=== PATIENT | female | born 1995 | race Caucasian/White ===

== ENCOUNTER 2017-04-03 12:34 | Emergency (ER) | payer MEDICAID, OTHER ==
[~2017-04-03] VITALS: Ht 180.3 cm; Wt 90.8 kg
[2017-04-03 12:39] VITALS: BP 110/75; PULSE 95; RESP 16; TEMP 98; O2SAT 100
[2017-04-03] MEDS ORDERED: LIDOCAINE HCL 1% 50 ML VIAL INFIL ONE (13:00)
[2017-04-03] MEDS ORDERED: ALBU6.7H INH (13:06)
[2017-04-03] MEDS ORDERED: CEPH-460 PO (13:33)
[2017-04-03] MEDS ORDERED: BACT800T5 PO (13:33)
--- NOTE | 2017-04-03 13:33 | PD ---
HPI Chief Complaint: Skin Problem Time Seen by Provider: 12:49 Travel History International Travel<30 days: No Contact w/Intl Traveler<30days: No Traveled to known affect area: No History of Present Illness HPI Patient is a 21-year-old female who comes in complaining of a painful lump near her vagina. She says she noticed it yesterday and it became larger today. She said she tried to pop it with a needle, but this did not help. She has not noticed any discharge of fluid from the area. She does shave in that area. She denies any fever or chills. PFSH Past Medical History Asthma: Yes Gastrointestinal Disorders: Yes (gallstones) Tetanus Vaccination: < 5 Years Influenza Vaccination: No ?: Not LMP: LAST MONTH Past Surgical History Surgical History: No Previous Surgery Social History Alcohol Use: No Tobacco Use: Yes (/2 ppd) Substance Use: No Allergies-Medications (Allergen,Severity, Reaction): Coded Allergies: No Known Allergies (Unverified , 04/03/17) Reported Meds & Prescriptions Reported Meds & Active Scripts Active Keflex (Cephalexin) 500 Mg Cap 500 Mg PO Q8H 7 Days Bactrim DS (Sulfamethoxazole-Trimethoprim) 800-160 Mg Tab 1 Tab PO BID Reported Proventil Hfa 6.7 GM Inh (Albuterol Sulfate) 90 Mcg/Act Aer 2 Puff INH Q4-6H PRN Review of Systems General / Constitutional: No: Fever, Chills Cardiovascular: No: Chest Pain or Discomfort Respiratory: No: Shortness of Breath Gastrointestinal: No: Nausea, Vomiting Genitourinary: No: Dysuria Skin: Positive Lesions Neurologic: No: Weakness, Dizziness Physical Exam Narrative GENERAL: Awake and alert, in no acute distress. SKIN: Focused skin assessment warm/dry. 2 cm fluctuant area just outside the lower vagina on the right side. Surrounding erythema. It is clearly outside the vagina, not involved with the labia majora or minora. HEAD: Atraumatic. Normocephalic. EYES: Pupils equal and round. No scleral icterus. NECK: Trachea midline. No JVD. CARDIOVASCULAR: Regular rate and rhythm. No murmur appreciated. RESPIRATORY: No accessory muscle use. Clear to auscultation. Breath sounds equal bilaterally. NEUROLOGICAL: Awake and alert. No obvious cranial nerve deficits. Motor grossly within normal limits. Normal speech. PSYCHIATRIC: Appropriate mood and affect; insight and judgment normal. Data Data Last Documented VS Vital Signs Date Time Temp Pulse Resp B/P Pulse Ox O2 Delivery O2 Flow Rate FiO2 04/03/17 13:51 88 16 108/70 100 Room Air 04/03/17 12:39 98.0 Orders Ed Urine Pregnancytest Poc (04/03/17 12:58) Lidocaine 1% Inj (50 Ml) (Xylocaine 1% I (04/03/17 13:00) MDM Medical Decision Making Medical Screen Exam Complete: Yes Emergency Medical Condition: Yes Medical Record Reviewed: Yes Differential Diagnosis Abscess versus cellulitis versus Bartholin's cyst Narrative Course Patient is a 21-year-old female comes in complaining of a painful swollen lump in her vaginal area. Exam shows an abscess just outside the vagina to the skin where she shaves. Abscess drained, pus expressed. Patient is much more comfortable afterwards. We'll discharge with prescriptions for Bactrim and Keflex. Advised to take ibuprofen as needed for pain. Advised to not shave the area for a few weeks. Advised follow-up with her doctor. Advised to return to the ED as needed for any worsening symptoms. Procedures Procedure Narrative INCISION AND DRAINAGE OF ABSCESS: The area was prepped and was sterilely draped. A subcutaneous wheal of 1 % Xylocaine with a total number 6 mL was used to anesthetize the area properly. A number 11 scalpel was used to make a 1 -cm incision across the area of the abscess. The abscess was drained, complex loculations were broken down, and irrigated with normal saline. Sterile dressing applied. Diagnosis Primary Impression: Abscess Patient Instructions: Abscess (ED), General Instructions Additional Instructions: Keep the area clean and dry. Do not shave for the next 2 weeks at least, and until the infection is completely cleared. Follow up with your doctor. Take all of your antibiotics. Return to the ED as needed for any worsening symptoms. Scripts Cephalexin (Keflex)500 Mg [id number] Mg PO Q8H 7 Days Ref 0 Prov:Rita Mendoza MD 04/03/17 Sulfamethoxazole-Trimethoprim (Bactrim DS)800-160 Mg Tab1 Tab PO BID #14 TAB Ref 0 Prov:Rita Mendoza MD 04/03/17 Disposition: 01 DISCHARGE HOME Condition: Stable Rita Mendoza MD April 03, 2017 13:33
[2017-04-03 13:51] VITALS: BP 108/70; PULSE 88; RESP 16; O2SAT 100
== END 2017-04-03 13:50 | disposition home or self-care (01) ==
LOC: PHED 12:34
DX: L02.818 Cutaneous abscess of other sites (principal); F17.210 Nicotine dependence, cigarettes, uncomplicated
CPT/HCPCS: 56405; 84703